=== PATIENT | female | born 1980 | race Caucasian/White ===

== ENCOUNTER 2024-11-03 12:41 | Emergency (ER) | payer OTHER, SELFPAY ==
[2024-11-03 12:49] VITALS: BP 119/78
[2024-11-03 13:31] LABS: Hematocrit 36.1 % (37.0-47.0); Hemoglobin 12.4 g/dL (12.0-16.0); Mean Corp Hgb Conc. 34.3 g/dL (33.0-37.0); Mean Corpuscular Volume 94.8 fL (81.0-99.0); Nucleated Red Blood Cells % 0 %; Platelet Count 232 10^3/uL (130-400); Red Cell Dist. Width 12.7 % (11.5-14.5)
[2024-11-03 13:34] LABS: ALT (SGPT) 37 U/L (0-35); AST (SGOT) 34 U/L (14-36); Albumin 4.0 g/dl (3.5-5.0); Alkaline Phosphatase 73 U/L (38-126); Blood Urea Nitrogen 14 mg/dl (7-17); Calcium 9.4 mg/dl (8.4-10.2); Carbon Dioxide 28 mmol/L (22-30); Chloride 107 mmol/L (98-107); Glucose 95 mg/dl (70-99); Lipase 36 U/L (23-300); Potassium 4.2 mmol/L (3.5-5.1); Sodium 139 mmol/L (135-145); Total Protein 6.8 g/dl (6.3-8.2); eGFR > 60.00
[2024-11-03 13:48] LABS: HCG, Serum Qualitative Screen Negative
--- NOTE | 2024-11-03 18:21 | ED.GENMED ---
Addendum entered and electronically signed by Hua Martin MD 11/03/24 21:10:
Monitor strip sinus bradycardia 55.
Original Note:
History of Present Illness
General
Chief Complaint: Abdominal Pain
Source: patient
Exam Limitations: none
Time Seen by Provider: 11/03/24 17:30
History of Present Illness
History of Present Illness:
43-year-old female ongoing joint pains myalgias vague intermittent abdominal pain and headaches. This has been going on for a year. Severe fatigue. No weight change. No chest pain or shortness of breath. She was diagnosed with hereditary
hemochromatosis. She had a phlebotomy done a few weeks ago and was told she would feel better but she has she states she feels worse. She is frustrated over the lack of improvement of her symptoms. She denies any acute other complaints.
Past History
Past History
ED Past Medical History: Other (Hereditary hemochromatosis)
ED Past Surgical History: Appendectomy, and Urological
Review of Systems
Review of Systems
All Other Systems: Not applicable
Constitutional: Denies fever
Respiratory: Reports no symptoms
Cardiac: Reports no symptoms
Phy Exam
Physical Exam
Physical Exam:
GENERAL: Alert and oriented in no apparent distress
EYE: Orbits normal.
NECK: Supple, no thyroid palpable. No obvious joint swelling warmth or erythema although tenderness along her joints and even has some vague muscular tenderness
ENT: Pharynx without erythema
CARDIAC: Regular rate and rhythm without any obvious murmurs.
LUNGS: Clear breath sounds,normal
ABDOMEN: Soft, without focal tenderness or distention
NEUROLOGICAL: Alert and oriented , grossly non-focal
SKIN: Warm and dry, no rash or lesion, no discoloration, skin intact.
MUSCULOSKELETAL: No edema,no deformity.Good color
PSYCH: Normal and appropriate interaction.
Course
Orders/Labs/Results
Orders:
Orders
11/03/24 12:53
Test Result ONCE
11/03/24 12:56
C-Reactive Protein Urgent
Complete Blood Count/With Diff Urgent
Comprehensive Metabolic Panel Urgent
Creatine Phosphokinase Urgent
Erythrocyte Sed Rate Urgent
Ferritin Urgent
HCG, Serum Qualitative Screen Urgent
Iron Urgent
Lipase Urgent
TSH Reflex To Free T4 Urgent
Total Iron Binding Urgent
11/03/24 17:41
US Abdomen Complete/Upper Urgent
Comment:
Reason For Exam: Abdominal pain/possible hereditary hemochromatosis
US Periph Venous LOWER Ext Chris Urgent
Comment:
Reason For Exam: Bilateral leg pain
11/03/24 17:42
Add On- LAB Urgent
Tests Added?: tsh reflex t4, esr,crp,cpk,ferritin,iron,tibc
Abnormal Lab Results
11/03/24
12:56
RBC 3.81 L 10^6/uL
(4.20-5.40)
Hct 36.1 L %
(37.0-47.0)
MCH 32.5 H pg
(27.0-31.0)
MPV 11.4 H fL
(7.4-10.4)
Iron 201 H ug/dl
(37-170)
TIBC 208 L ug/dl
(265-497)
% Saturation 96 H %
(20-50)
Ferritin 381.0 H ng/ml
(6.24-137)
ALT 37 H U/L
(0-35)
11/03/24 12:56
11/03/24 12:56
Vital Signs
Initial and Last Documented VS:
Initial Vital Signs
Temp Pulse Resp BP Pulse Ox
98.1 F 83 18 119/78 98
11/03/24 12:49 11/03/24 12:49 11/03/24 12:49 11/03/24 12:49 11/03/24 12:49
Last Documented Vital Signs
Temp Pulse Resp BP Pulse Ox
98.1 F 54 18 104/58 100
11/03/24 12:49 11/03/24 20:04 11/03/24 20:04 11/03/24 20:04 11/03/24 20:04
MDM/Problems Addressed
Differential Diagnosis Includes:
Patient has a recent diagnosis of hereditary hemochromatosis with elevated ferritin and iron levels. This would fit most of her symptoms. Would have to consider secondary hypothyroidism. Also another autoimmune issue. Will check Lyme titer ESR
CRP recheck her iron studies. With vague abdominal symptoms although a nonsurgical abdominal exam we will check an ultrasound. In with her vague leg pain we will check ultrasounds. I explained to her that it was very unlikely I would come to a
definitive answer for her issues and warrants hematologic follow-up
*Radiology
Radiology exam reviewed: radiology read reviewed (Hepatic [facility] [place]. Negative leg ultrasounds)
*Pulse Oximetry
SaO2: 98
Oxygen Mode of Delivery: Room air
Patient hypoxic: no
*Critical Care Note
Total Time (30-74mins, 75-104mins- exclusive of procedures): Not Applicable
Update Note
Update Note:
I cannot find a serious or other explanation for patient's symptoms other than her hereditary hemochromatosis. Stable for discharge. Will follow-up this week with her [employer]
ED Attending Note
-
Portions of this chart may have been created with voice recognition software.� Occasional wrong word or��sound alike� substitutions may have occurred due to the inherent limitations of voice recognition software.
Discharge Plan
Departure
Patient Disposition: Home (Routine Discharge)
Date of Disposition: 11/03/24
Time of Disposition: 20:31
Patient with high blood pressure during this ER visit?: No
Discharge Problem:
Fatigue/weakness, Arthralgias, Hereditary hemochromatosis
Instructions: Fatigue (DC), Hemochromatosis
Referrals:
UNKNOWN - PT DOES,NOT KNOW [Family Provider]
Activity Restrictions/Additional Instructions:
Follow-up this week with your [employer]. Show then the ultrasound reports
Also follow-up closely with your primary physician
Interventions
Interventions:
*Risk Screen - Suicide Last Done: 11/03/24 12:49
*General Assessment Last Done: 11/03/24 12:49
*Neglect/Abuse Screening Last Done: 11/03/24 12:49
*ED- Fall Risk Assessment Last Done: 11/03/24 20:05
*ED COVID-19 Vaccine History Last Done: 11/03/24 19:14
*Nursing Disposition Last Done: 11/03/24 20:49
KS-Dqrghu-Fgamuakzwr Assessment Last Done: 11/03/24 19:14
ED-Musculoskeletal Assessment Last Done: 11/03/24 19:14
Discharge Date and Time
Discharge Date/Time: 11/03/24 20:50
Print Language: OCCITAN
[2024-11-03 19:33] LABS: Iron 201 ug/dl (37-170)
[2024-11-03 19:42] LABS: Total Iron Binding Capacity 208 ug/dl (265-497)
[2024-11-03 19:55] LABS: C-Reactive Protein < 5.00 mg/L (0.0-10.00)
[2024-11-03 20:04] VITALS: BP 104/58
[2024-11-03 20:30] LABS: Ferritin 381.0 ng/ml (6.24-137)
== END 2024-11-03 20:50 | disposition home or self-care (01) ==
LOC: EMR 12:41
PROVIDERS: Student in an Organized Health Care Education/Training Program; EMERGENCY PHYSICIAN Emergency Medicine
DX: E83.110 Hereditary hemochromatosis (principal); R53.83 Other fatigue; M25.50 Pain in unspecified joint; R00.1 Bradycardia, unspecified; M79.605 Pain in left leg; M79.604 Pain in right leg; Z90.49 Acquired absence of other specified parts of digestive tract
CPT/HCPCS: 99284; 76700; 80053; 82550; 82728; 83540; 83550; 83690; 84443; 84703; 85025; 85652; 86140; 93970